=== PATIENT | female | born 1995 | race American Indian/Alaskan Native ===

== ENCOUNTER 2016-05-23 13:02 | Emergency (ER) | payer MEDICAID ==
--- NOTE | 2016-05-23 17:25 | Emergency Department Report ---
HPI - General Chief Complaint: Upper Respiratory Infection Time Seen by Provider: 05/23/16 14:18 - HPI HPI: 20-year-old female presents today with chills, sweats, sore throat, cough, congestion, headache 3 days. 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 Patient tried Tylenol with some relief. Patient is currently 7 months . Denies vaginal bleeding or discharge. Denies nausea, vomiting, abdominal pain, shortness of breath, chest pain. ED Past Medical Hx - Past Medical History Previous Medical History?: No - Surgical History Past Surgical History?: No - Social History Smoking Status: Never Smoker Substance Use Type: None - Medications Home Medications: Home Medications Medication Instructions Recorded Confirmed Last Taken Type Acetaminophen [Acetaminophen TAB] 500 mg PO Q6HR #30 tablet 05/23/16 Unknown Rx Cetirizine HCl [ZyrTEC] 10 mg PO QDAY #20 capsule 05/23/16 Unknown Rx ED Review of Systems ROS: Stated complaint: FLU SYMPTOMS Other details as noted in HPI Constitutional: denies: chills, fever Eyes: denies: eye pain ENT: throat pain, congestion. denies: ear pain Respiratory: cough. denies: shortness of breath, wheezing Cardiovascular: denies: chest pain, palpitations Endocrine: no symptoms reported Gastrointestinal: denies: abdominal pain, nausea, vomiting Neurological: headache. denies: weakness Physical Exam - Physical Exam Vital Signs: Vital Signs 05/23/16 13:25 Temperature 98.9 F Pulse Rate 98 H Respiratory 18 Rate Blood Pressure 107/70 O2 Sat by Pulse 100 Oximetry Physical Exam: GENERAL: The patient is well-developed and well-nourished. Patient is in NAD. HEAD: Normocephalic. Atraumatic. EYES: PERRL. EARS: External auditory canals and tympanic membranes clear; hearing grossly intact. NOSE: Normal nasal mucosa with no nasal discharge. THROAT: Positive for erythema and tonsillar exudates. Minimal tonsilomegaly noted. NECK: Supple, nontender, without lymphadenopathy. CHEST/LUNGS: Clear to auscultation throughout. HEART/CARDIOVASCULAR: Regular rate and rhythm. ABDOMEN: Abdomen is soft, nontender. No guarding or rebound tenderness. EXTREMITIES: Peripheral pulses intact. Capillary refill less than 2 seconds. NEURO: Alert and oriented x 3. Normal gait. ED Course Vital Signs 05/23/16 13:25 Temperature 98.9 F Pulse Rate 98 H Respiratory 18 Rate Blood Pressure 107/70 O2 Sat by Pulse 100 Oximetry ED Medical Decision Making - Lab Data Vital Signs 05/23/16 13:25 Temperature 98.9 F Pulse Rate 98 H Respiratory 18 Rate Blood Pressure 107/70 O2 Sat by Pulse 100 Oximetry - Medical Decision Making 20-year-old female presents today with flulike symptoms x 3 days. Her rapid flu test was negative. Patient is in no acute distress at this time. She will be discharged home and is encouraged to follow up with a primary care provider. She will be sent home on Tylenol and Zyrtec and is encouraged to return to the emergency room for any worsening symptoms. Critical care attestation.: If time is entered above; I have spent that time in minutes in the direct care of this critically ill patient, excluding procedure time. ED Disposition Clinical Impression: URI (upper respiratory infection) Qualifiers: URI type: unspecified URI Qualified Code(s): J06.9 - Acute upper respiratory infection, unspecified Disposition: DISCHARGED TO HOME OR SELFCARE Is pt being admited?: No Does the pt Need Aspirin: No Condition: Stable Instructions: Upper Respiratory Infection (ED) Additional Instructions: Follow-up with primary care provider. Return to the emergency department if symptoms worsen. Prescriptions: Acetaminophen [Acetaminophen TAB] 500 mg PO Q6HR #30 tablet Cetirizine HCl [ZyrTEC] 10 mg PO QDAY #20 capsule Referrals: PRIMARY CARE [Primary Care Provider] - 3-5 Days [facility] [Outside] - 3-5 Days Forms: Work/School Release Form(ED) Time of Disposition: 17:26
[2016-05-23 17:42] VITALS: BP 110/71
== END 2016-05-23 17:41 | disposition home or self-care (01) ==
LOC: ED 13:02
DX: J06.9 Acute upper respiratory infection, unspecified (principal); R51 Headache; J02.9 Acute pharyngitis, unspecified
CPT/HCPCS: 87116; 87400; 87430; 99282